=== PATIENT | male | born 1985 | race Hispanic/Latino ===

== ENCOUNTER 2018-03-22 13:30 | Emergency (ER) | payer OTHER, BC ==
[2018-03-22 13:42] VITALS: RESP 18
--- NOTE | 2018-03-22 13:56 | ED PDOC ---
Upper Extremity Pain/Injury Time Seen by Provider: 03/22/18 13:43 Chief Complaint (Nursing): Upper Extremity Problem/Injury Chief Complaint (Provider): Right 2nd digit injury History Per: Patient History/Exam Limitations: no limitations Onset/Duration Of Symptoms: Mins Current Symptoms Are (Timing): Still Present Quality: "Pain" Pain Scale Rating Of: 5 Exacerbating Factor(s): Strenuous Use Of Affected Area Additional History Per: Patient Additional Complaint(s): 32yo male, right hand dominant, presents to ED for evaluation of right 2nd digit injury sustained prior to arrival. 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 Patient states the pain is localized and rates it 5/10. He did not take any pain medications prior to arrival and denies any numbness, loss of sensation or other injuries. He denies any other medical complaints. PMD: None Past Medical History Reviewed: Historical Data, Nursing Documentation, Vital Signs Vital Signs: Last Vital Signs Temp 98.2 F 03/22/18 13:40 Pulse 80 03/22/18 13:40 Resp 18 03/22/18 13:40 BP 123/81 03/22/18 13:40 Pulse Ox 99 03/22/18 13:40 - Medical History PMH: No Chronic Diseases - Surgical History Surgical History: No Surg Hx - Family History Family History: States: No Known Family Hx - Social History Current smoker - smoking cessation education provided: No Alcohol: None Drugs: Denies - Home Medications Home Medications: Ambulatory Orders Medication Instructions Recorded Ibuprofen [Motrin Tab] 600 mg PO Q6 PRN #20 tab 03/22/18 - Allergies Allergies/Adverse Reactions: Allergies Allergy/AdvReac Type Severity Reaction Status Date / Time No Known Allergies Allergy Verified 03/22/18 13:40 Review of Systems ROS Statement: Except As Marked, All Systems Reviewed And Found Negative Musculoskeletal: Positive for: Other (right 2nd digit injury) Neurological: Negative for: Weakness, Numbness Physical Exam - Reviewed Nursing Documentation Reviewed: Yes Vital Signs Reviewed: Yes - Physical Exam Comments: GENERAL APPEARANCE: Patient is awake, alert, oriented x 3, in no acute distress. SKIN: Warm, dry; (-) cyanosis. NECK: Supple, FROM ENT: Mucus membranes moist. CHEST AND RESPIRATORY: (-) rales, (-) rhonchi, (-) wheezes; breath sounds equal bilaterally. HEART AND CARDIOVASCULAR: (-) irregularity; (-) murmur, (-) gallop. HAND: (+) Tenderness and (+) swelling of proximal right 2nd digit with faint ecchymosis to palmar aspect of proximal right 2nd digit (+) dislocation of PIP of right 2nd digit. (-) snuff-box tenderness. (-) distal neurovascular deficit. (+) Capillary refill < 2 seconds. FROM of all other digits on right hand and no tenderness or deformity noted to other metacarpals/digits of right hand. No skin break noted to right hand. NEURO: Distal sensation intact - ECG O2 Sat by Pulse Oximetry: 99 (RA) Pulse Ox Interpretation: Normal Medical Decision Making Medical Decision Making: Impression: Finger injury, PIP dislocation of right 2nd digit Plan: -- XR Right hand -- Motrin 600 mg PO Time: 1450 PROCEDURE: Right Hand Radiographs. HISTORY: 2nd digit injury COMPARISON: None. FINDINGS: BONES: No acute fracture. JOINTS: Ulnar and dorsal dislocation of the 2nd digit at the level of the proximal interphalangeal joint. SOFT TISSUES: Normal. OTHER FINDINGS: None. IMPRESSION: Ulnar and dorsal dislocation of the 2nd digit at the level of the proximal interphalangeal joint. No acute fracture. 1530 Digit block performed with 2% Lidocaine by Jerrell MARCUS. 1600 PIP reduction performed by Jerrell MARCUS. See procedure note below. Patient tolerated procedure well. FROM of digit with (-) distal NV deficit. Repeat XR ordered to confirm PIP reduction and realignment. Patient placed in aluminum finger splint by Jerrell MARCUS. NV intact after placement. Time: 1630 PROCEDURE: Right Hand Radiographs. HISTORY: confirm reduction of 2nd digit PIP COMPARISON: March 22, 2018. Time of the most recent examination: 13:59 FINDINGS: BONES: Anatomic reduction of dislocation 2nd digit proximal interphalangeal joint. JOINTS: Osteoarthritic changes are stable SOFT TISSUES: Residual soft tissue swelling OTHER FINDINGS: None. IMPRESSION: Anatomic alignment status post reduction 2nd digit proximal interphalangeal joint dislocation On exam, patient remains AAOx3, in no acute distress. On exam, neck is supple, lungs CTA, cardiac RRR, neuro exam shows no focal findings. Diagnostic results d/w the patient in great detail. VSS, stable for discharge. Patient advised to follow up with referred ortho/hand in 1-2 days without fail. Advised to take medication as prescribed. Return to the emergency room at any time for any new or worsening symptoms. Patient states he fully agrees with and understands discharge instructions. States that he agrees with the plan and disposition. Verbalized and repeated discharge instructions and plan. I have given the patient opportunity to ask any additional questions. Scribe Attestation: Documented by Nelda Toledo acting as a scribe for SAMMIE Ponce. Provider Attestation: All medical record entries made by the Scribe were at my direction and personally dictated by me. I have reviewed the chart and agree that the record accurately reflects my personal performance of the history, physical exam, medical decision making, and the department course for this patient. I have also personally directed, reviewed, and agree with the discharge instructions and disposition. Procedures - Time-Out Type of Procedure: Joint reduction Site of Procedure: Right 2nd digit Correct Patient: Yes Correct Procedure: Yes Correct Site Marked: Yes PA/Tech: Betsy Allan - Joint Reduction Conscious Sedation: No Reduction Attempts: 1 Pre-Procedure NV Exam: Yes (NV intact) Post Joint Reduction Film: joint reduced Progress: Ulnar and dorsal dislocation of the 2nd digit at the level of the proximal interphalangeal joint. Area prepped and cleaned with betadine. 4ml 2% Lidocaine used for a digital block of right 2nd digit. Joint reduced by manual longitudinal traction with hyperextension, followed by pressure to the dorsal aspect of the base of the middle phalanx. Post-reduction exam: NV sensation are intact. FROM. Patient was able to tolerate procedure well. Disposition - Clinical Impression Clinical Impression: Dislocation of finger PIP joint - Patient ED Disposition Is Patient to be Admitted: No Counseled Patient/Family Regarding: Studies Performed, Diagnosis, Need For Followup, Rx Given - Disposition Referrals: Nicho Ortiz MD [Staff Provider] - Jannette Edwards MD [Staff Provider] - Disposition: Routine/Home Disposition Time: 16:19 Condition: STABLE Additional Instructions: WEAR ALUMINUM FINGER SPLINT UNTIL SEEN BY SPECIALIST. TAKE MEDICINE NEEDED. RETURN TO ED WITH ANY NEW OR WORSENING SYMPTOMS. 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
--- NOTE | 2018-03-22 14:46 | RAD ---
PROCEDURE: Right Hand Radiographs. HISTORY: 2nd digit injury COMPARISON: None. FINDINGS: BONES: No acute fracture. JOINTS: Ulnar and dorsal dislocation of the 2nd digit at the level of the proximal interphalangeal joint. SOFT TISSUES: Normal. OTHER FINDINGS: None. IMPRESSION: Ulnar and dorsal dislocation of the 2nd digit at the level of the proximal interphalangeal joint. No acute fracture.
[2018-03-22] MEDS ORDERED: LIDOCAINE 2% 10ML 20 MG/ML VIAL IJ STA (15:10)
[2018-03-22] MEDS ORDERED: Povidone Iodine Oint 10% Foilpak UD ONE (15:33)
--- NOTE | 2018-03-22 16:21 | RAD ---
PROCEDURE: Right Hand Radiographs. HISTORY: confirm reduction of 2nd digit PIP COMPARISON: March 22, 2018. Time of the most recent examination: 13:59 FINDINGS: BONES: Anatomic reduction of dislocation 2nd digit proximal interphalangeal joint. JOINTS: Osteoarthritic changes are stable SOFT TISSUES: Residual soft tissue swelling OTHER FINDINGS: None. IMPRESSION: Anatomic alignment status post reduction 2nd digit proximal interphalangeal joint dislocation
[2018-03-22 16:40] VITALS: BP 118/72; PULSE 70; TEMP 98
[2018-03-22 20:14] VITALS: O2SAT 99
== END 2018-03-22 16:40 | disposition home or self-care (01) ==
LOC: H.ER 13:30
DX: S63.280A Dislocation of proximal interphalangeal joint of right index finger, initial encounter (principal); X50.9XXA Other and unspecified overexertion or strenuous movements or postures, initial encounter; Y92.39 Other specified sports and athletic area as the place of occurrence of the external cause